=== PATIENT | female | born 1965 | race American Indian/Alaskan Native ===

== ENCOUNTER 2019-12-31 13:09 | Outpatient (CLI) | payer OTHER ==
--- NOTE | 2019-12-31 15:26 | Mammography Report ---
DIGITAL DIAGNOSTIC MAMMOGRAM WITH CAD, -- 12/31/2019 INDICATION: Recent incidental breast lesion, side unspecified, identified on CT chest performed for f ollow-up of colon cancer. History of left breast nodule. TECHNIQUE: Digital bilateral mammographic imaging was performed. This examination was interpreted with the benefit of Computer-aided Detection analysis. COMPARISON: 10/24/2016, 09/21/2014 FINDINGS: Breast Density: The breasts are heterogeneously dense, which may obscure small masses. A previously biopsied calcified left retroareolar mass has not significantly changed. Benign nodulari ty of the right breast is again seen. No suspicious mass, calcification, asymmetry or architectural d istortion is seen. IMPRESSION: No evidence of malignancy. Please correlate with the report for the recently performed CT. Otherwise , anterior annual screening mammography is recommended. Recommended Follow-Up: Clinical exam BI-RADS Category 2: Benign. A "normal" or negative report should not discourage follow up or biopsy of a clinically significant f inding. A written summary of these findings will be mailed to the patient. The patient will be entered into a mammography reporting system which will generate a reminder letter for the patient's next appointmen t at the appropriate interval. According to the [employer], yearly mammograms are recommended starting at age 40 and continuing as long as a woman is in good health. Breast MRI is recommended for women with an lonnie roximately 20-25% or greater lifetime risk of breast cancer, including women with a strong family his tory of breast or ovarian cancer and women who have been treated for Hodgkin's disease. Signer Name: Kemar Tavera MD Signed: 12/31/2019 3:22 PM Workstation Name: [id number]
== END 2019-12-31 13:10 | disposition home or self-care (01) ==
LOC: SPVWC 13:09
PROVIDERS: ATTEND Internal Medicine Hematology & Oncology
DX: N63.42 Unspecified lump in left breast, subareolar (principal); C20 Malignant neoplasm of rectum
CPT/HCPCS: 77066